=== PATIENT | female | born 1965 | race Caucasian/White ===

== ENCOUNTER 2017-07-10 11:35 | Emergency (ER) | payer OTHER ==
[~2017-07-10] VITALS: Ht 170.2 cm; Wt 88.5 kg
[2017-07-10 11:37] VITALS: BP 136/88; PULSE 76; RESP 20; TEMP 97.8; O2SAT 99
[2017-07-10 11:48] VITALS: BP 131/76; PULSE 67; RESP 18; TEMP 98.1; O2SAT 98
--- NOTE | 2017-07-10 11:49 | PD ---
HPI . abdominal pain x 10 days Chief Complaint: Abdominal Pain Time Seen by Provider: 11:49 Travel History International Travel<30 days: No Contact w/Intl Traveler<30days: No Traveled to known affect area: No History of Present Illness HPI 51 yr old female here with c/o abdominal pain for 10 days and says that she usually has chronic diarrhea and was taking Imodium in the past, however she has since been off that for some time and only taking fiber. She tells me [place] developed some abdominal pain and took some Pepto-Bismol area since then she's had abdominal pain mainly in the right upper quadrant. She rates the pain as moderate to severe. She does not have any associated nausea, vomiting or diarrhea. She initially thought she was constipated, but tells me that she is not. She denies any chance of as she is in menopause. She has no other complaints. PFSH Past Medical History ?: Not Social History Tobacco Use: No Allergies-Medications (Allergen,Severity, Reaction): Coded Allergies: No Known Allergies (Unverified , 07/10/17) Reported Meds & Prescriptions Reported Meds & Active Scripts Active No Active Prescriptions or Reported Medications Review of Systems General / Constitutional: No: Fever Eyes: No: Visual changes HENT: No: Headaches Cardiovascular: No: Chest Pain or Discomfort Respiratory: No: Shortness of Breath Gastrointestinal: Positive: Abdominal Pain (RUQ) Genitourinary: No: Dysuria Musculoskeletal: No: Pain Skin: No Rash Neurologic: No: Weakness Psychiatric: No: Depression Endocrine: No: Polydipsia Hematologic/Lymphatic: No: Easy Bruising Physical Exam Narrative GENERAL: AAO x 3, no acute distress, Well-nourished, well-developed patient. SKIN: Warm and dry. No visible rashes or bruising. HEAD: Normocephalic and atraumatic. EYES: No scleral icterus. No injection or drainage. ENT: No nasal drainage noted. Mucous membranes pink. Airway patent. NECK: Supple, trachea midline. No JVD. CARDIOVASCULAR: Regular rate and rhythm without murmurs, gallops, or rubs. RESPIRATORY: Breath sounds equal bilaterally. No accessory muscle use. No rhonchi or rales. GASTROINTESTINAL: Abdomen soft, tenderness to the right lower quadrant. Normoactive bowel sounds EXTREMITIES: No cyanosis or edema. BACK: No obvious deformity. NEURO: CN II-12 intact, athletic instructor strength normal b/l, UE and LE 5/5, no focal deficits PSYCH: AAO x 3, normal affect. Data Data Last Documented VS Vital Signs Date Time Temp Pulse Resp B/P (MAP) Pulse Ox O2 Delivery O2 Flow Rate FiO2 07/10/17 12:48 98.3 69 19 131/76 (94) 97 Room Air Orders Orders Complete Blood Count With Diff (07/10/17 11:57) Comprehensive Metabolic Panel (07/10/17 11:57) Lipase (07/10/17 11:57) Urinalysis - C+S If Indicated (07/10/17 11:57) Ct Abd/Pel W Iv Contrast(Rout) (07/10/17 11:57) Iv Access Insert/Monitor (07/10/17 11:57) Ecg Monitoring (07/10/17 11:57) Oximetry (07/10/17 11:57) Sodium Chloride 0.9% Flush (Ns Flush) (07/10/17 12:00) Iohexol 350 Inj (Omnipaque 350 Inj) (07/10/17 13:26) Labs Laboratory Tests Test 07/10/17 12:00 07/10/17 12:45 Urine Color YELLOW Urine Turbidity CLEAR Urine pH 6.5 Urine Specific [place] 1.022 Urine Protein NEG mg/dL Urine Glucose (UA) NEG mg/dL Urine Ketones NEG mg/dL Urine Occult Blood NEG Urine Nitrite NEG Urine Bilirubin NEG Urine Urobilinogen LESS THAN 2.0 MG/DL Urine Leukocyte Esterase NEG Urine RBC LESS THAN 1 /hpf Urine WBC 1 /hpf Urine Squamous Epithelial Cells <1 /hpf Microscopic Urinalysis Comment CULT NOT INDICATED White Blood Count 6.2 TH/MM3 Red Blood Count 5.23 MIL/MM3 Hemoglobin 14.8 GM/DL Hematocrit 45.0 % Mean Corpuscular Volume 86.1 FL Mean Corpuscular Hemoglobin 28.4 PG Mean Corpuscular Hemoglobin Concent 33.0 % Red Cell Distribution Width 12.6 % Platelet Count 200 TH/MM3 Mean Platelet Volume 9.7 FL Neutrophils (%) (Auto) 74.0 % Lymphocytes (%) (Auto) 20.5 % Monocytes (%) (Auto) 3.9 % Eosinophils (%) (Auto) 1.0 % Basophils (%) (Auto) 0.6 % Neutrophils # (Auto) 4.6 TH/MM3 Lymphocytes # (Auto) 1.3 TH/MM3 Monocytes # (Auto) 0.2 TH/MM3 Eosinophils # (Auto) 0.1 TH/MM3 Basophils # (Auto) 0.0 TH/MM3 CBC Comment DIFF FINAL Differential Comment Blood Urea Nitrogen 12 MG/DL Creatinine 0.83 MG/DL Random Glucose 92 MG/DL Total Protein 8.4 GM/DL Albumin 4.2 GM/DL Calcium Level 9.4 MG/DL Alkaline Phosphatase 106 U/L Aspartate Amino Transf (AST/SGOT) 22 U/L Alanine Aminotransferase (ALT/SGPT) 36 U/L Total Bilirubin 1.1 MG/DL Sodium Level 137 MEQ/L Potassium Level 4.2 MEQ/L Chloride Level 102 MEQ/L Carbon Dioxide Level 29.2 MEQ/L Anion Gap 6 MEQ/L Estimat Glomerular Filtration Rate 73 ML/MIN Lipase 160 U/L MDM Medical Decision Making Medical Screen Exam Complete: Yes Emergency Medical Condition: Yes Medical Record Reviewed: Yes Differential Diagnosis pancreatitis, appendicitis, constipation, colitis, Narrative Course 51 yr old female here with c/o back pain. Exam is fairly unremarkable except for RLQ pain on palpation. CT scan and labs ordered. Last Impressions Abdomen/Pelvis CT 07/10/17 1157 Signed Impressions: Service Date/Time: Monday, July 10, 2017 13:25 - CONCLUSION: Apparent simple cyst in the liver otherwise negative. I do not see an etiology for the right upper quadrant pain. There is no significant stool in the colon. Devyn Saenz MD FACR Laboratory Tests Test 07/10/17 12:00 07/10/17 12:45 Urine Color YELLOW Urine Turbidity CLEAR Urine pH 6.5 Urine Specific [place] 1.022 Urine Protein NEG mg/dL Urine Glucose (UA) NEG mg/dL Urine Ketones NEG mg/dL Urine Occult Blood NEG Urine Nitrite NEG Urine Bilirubin NEG Urine Urobilinogen LESS THAN 2.0 MG/DL Urine Leukocyte Esterase NEG Urine RBC LESS THAN 1 /hpf Urine WBC 1 /hpf Urine Squamous Epithelial Cells <1 /hpf Microscopic Urinalysis Comment CULT NOT INDICATED White Blood Count 6.2 TH/MM3 Red Blood Count 5.23 MIL/MM3 Hemoglobin 14.8 GM/DL Hematocrit 45.0 % Mean Corpuscular Volume 86.1 FL Mean Corpuscular Hemoglobin 28.4 PG Mean Corpuscular Hemoglobin Concent 33.0 % Red Cell Distribution Width 12.6 % Platelet Count 200 TH/MM3 Mean Platelet Volume 9.7 FL Neutrophils (%) (Auto) 74.0 % Lymphocytes (%) (Auto) 20.5 % Monocytes (%) (Auto) 3.9 % Eosinophils (%) (Auto) 1.0 % Basophils (%) (Auto) 0.6 % Neutrophils # (Auto) 4.6 TH/MM3 Lymphocytes # (Auto) 1.3 TH/MM3 Monocytes # (Auto) 0.2 TH/MM3 Eosinophils # (Auto) 0.1 TH/MM3 Basophils # (Auto) 0.0 TH/MM3 CBC Comment DIFF FINAL Differential Comment Blood Urea Nitrogen 12 MG/DL Creatinine 0.83 MG/DL Random Glucose 92 MG/DL Total Protein 8.4 GM/DL Albumin 4.2 GM/DL Calcium Level 9.4 MG/DL Alkaline Phosphatase 106 U/L Aspartate Amino Transf (AST/SGOT) 22 U/L Alanine Aminotransferase (ALT/SGPT) 36 U/L Total Bilirubin 1.1 MG/DL Sodium Level 137 MEQ/L Potassium Level 4.2 MEQ/L Chloride Level 102 MEQ/L Carbon Dioxide Level 29.2 MEQ/L Anion Gap 6 MEQ/L Estimat Glomerular Filtration Rate 73 ML/MIN Lipase 160 U/L All results reviewed. I discussed the case with my attending. There are no acute findings. Patient is doing well. Recommend outpatient f/u. Stop anti-diarrhea meds as this could be contributing to her issue. Diagnosis Primary Impression: Abdominal pain Qualified Codes: R10.11 - Right upper quadrant pain Patient Instructions: General Instructions Additional Instructions: Please return to emergency department if your symptoms return or worsen. Follow up with your primary care provider. Med/Other Pt SpecificInfo: No Change to Meds Scripts No Active Prescriptions or Reported Meds Disposition: 01 DISCHARGE HOME Condition: Stable Jo Solomon Jul 10, 2017 11:49
[2017-07-10] MEDS ORDERED: SODIUM CHLORIDE 0.9% FLUSH 10 ML FLUSH IV FLUSH PRN (12:00)
[2017-07-10 12:44] LABS: BLOOD, URINE NEG (NEG); COMMENT (UR) CULT NOT INDICATED; CULTURE IF INDICATED CULT NOT INDICATED; GLUCOSE,URINE NEG (NEG); KETONE, URINE NEG (NEG); NITRITE,URINE NEG (NEG); PH, URINE 6.5 (5.0-8.5); SQUAMOUS EPITHELIAL CELL URINE <1 /hpf (0-5); URINE COLOR YELLOW (YELLW/STRAW)
[2017-07-10 12:48] VITALS: BP 131/76; PULSE 69; RESP 19; TEMP 98.3; O2SAT 97
[2017-07-10] MEDS ORDERED: IOHEXOL 350 MG/ML 10 ML VIAL (for RAD DIAG) IVCONTRAST ONE (13:26)
[2017-07-10 13:27] LABS: AUTOMATED NEUTROPHIL # 4.6 TH/MM3 (1.8-7.7); BASOPHIL % 0.6 % (0.0-2.0); EOSINOPHIL # 0.1 TH/MM3 (0-0.4); HEMO FLAGS DIFF FINAL; LYMPH % 20.5 % (9.0-44.0); LYMPHOCYTE # 1.3 TH/MM3 (1.0-4.8); MEAN CELL VOLUME 86.1 FL (80.0-100.0); MEAN CORPUSCULAR HEMOGLOBIN 28.4 PG (27.0-34.0); MONO % 3.9 % (0.0-8.0); PLATELET COUNT 200 TH/MM3 (150-450); RED BLOOD COUNT 5.23 MIL/MM3 (4.00-5.30); RED CELL DISTRIBUTION WIDTH 12.6 % (11.6-17.2); WHITE BLOOD COUNT 6.2 TH/MM3 (4.0-11.0)
[2017-07-10 13:50] LABS: ALT (GPT) 36 U/L (10-53); ANION GAP 6 MEQ/L (5-15); AST (GOT) 22 U/L (15-37); BICARBONATE 29.2 MEQ/L (21.0-32.0); BLOOD UREA NITROGEN 12 MG/DL (7-18); CHLORIDE 102 MEQ/L (98-107); GLOMERULAR FILTRATION RATE 73 ML/MIN (>89); POTASSIUM 4.2 MEQ/L (3.5-5.1); SODIUM (NA) 137 MEQ/L (136-145)
--- NOTE | 2017-07-10 13:50 | RADRPT ---
EXAM DATE/TIME: 07/10/2017 13:25 [facility] COMPARISON: No previous studies available for comparison. INDICATIONS : Right upper quadrant pain along with constipation IV CONTRAST: 88 cc Omnipaque 350 (iohexol) IV ORAL CONTRAST: No oral contrast ingested. RADIATION DOSE: 13.72 CTDIvol (mGy) MEDICAL HISTORY : Ovarian cyst SURGICAL HISTORY : section. ENCOUNTER: Initial ACUITY: 2 weeks PAIN SCALE: 6/10 LOCATION: Right upper quadrant TECHNIQUE: Volumetric scanning of the abdomen and pelvis was performed. Using automated exposure control and ad justment of the mA and/or kV according to patient size, radiation dose was kept as low as reasonably achievable to obtain optimal diagnostic quality images. DICOM format image data is available electro nically for review and comparison. FINDINGS: The lung base is are clear There is no pericardial effusion Scattered well-circumscribed less than 1 cm low-density lesions are seen the liver, probably cyst These are too small to characterize The spleen and pancreas are unremarkable The adrenal glands are unremarkable. There is an 1 cm cyst upper pole of the left kidney The right kidney is unremarkable There is no retroperitoneal adenopathy The region of the cecum and terminal unremarkable I do not see inflammatory changes in the right upper quadrant The abdominal wall is intact Uterus is mildly prominent. There is no adnexal mass. Scattered phleboliths are noted. There is no inguinal adenopathy Review of bone windows reveals only mild degenerative changes. CONCLUSION: Apparent simple cyst in the liver otherwise negative. I do not see an etiology for the right upper quadrant pain. There is no significant stool in the colon. Devyn Saenz MD FACR on July 10, 2017 at 13:44 Board Certified Radiologist. This report was verified electronically.
[2017-07-10 13:53] LABS: ALKALINE PHOSPHATASE 106 U/L (45-117); TOTAL BILIRUBIN ADULT 1.1 MG/DL (0.2-1.0)
[2017-07-10 14:32] VITALS: BP 113/72
== END 2017-07-10 14:44 | disposition home or self-care (01) ==
LOC: NEPD 11:35
DX: R10.11 Right upper quadrant pain (principal)
CPT/HCPCS: 74177; 80053; 81001; 83690; 85025; 99285; Q9967